=== PATIENT | female | born 1950 | race Caucasian/White ===

== ENCOUNTER 2024-09-26 09:56 | Outpatient (OUT) | payer MEDICARE, OTHER, SELFPAY ==
--- OUTSIDE RECORDS SUMMARY | 2019-09-05 07:20 | XMS_ITS | Continuity of Care Document ---
Author Organization [facility] Address [address] [place] [phone] Phone Care Team Providers Care Traffic Engineering Director Name Role Phone DEMETRIS MSN, FORENSIC SCIENTIST,CAR STARTER-C, JARVIS Unavailable Unavailable Allergies, Adverse Reactions, Alerts [...] - 3 Views Postop F/u Visit [facility] 9 Arthroplasty Acetab & Fem Pros Falls Risk Assessment Documented 2018 Screen Future Fall Risk No Falls 2018 Pre-Op Visit Postop F/u Visit Inc[facility] 9 Hip, Unilateral, W/pelvis When Perf, 2 - 3 Views Postop F/u Visit Inc[facility] 9 Arthroplasty Acetab & Fem Pros Pre-Op Visit Offic/outpt E&m New Mod Sever 8 Hips, Bilat, W/pelvis When Perf, 3 - 4 V iews Advance Directives Directive Yes / No Effective Date File Name No Information Encounters Encounter Description Practice Location Reason(s) For Visit Diagnoses Date Provider Providers Copied on Encounter Offic/outpt E&m Estab Low-mod [facility], [address] [place] [address], [id number], tel:[phone] [facility] Primary osteoarthritis of both hips 0 DEMETRIS CONLEY. [address] [place] [address], [id number], . tel:[phone] Referring Provider: BARTOLOME Yeh, [address] [place] [address], [id number]. tel:[phone] [facility], [address] [place] [address], [id number], tel:[phone] [facility] Status post total hip replacement, left Sep- 9 DEMETRIS CONLEY. [address] [place] [address], [id number], [place]. tel:[phone] Referring Provider: BARTOLOME Yeh, [address] [place] [address], [id number]. tel:[phone] [facility], [address] [place] [address], [id number], tel:[phone] [facility] Status post total hip replacement, left Robert-0 9 DEMETRIS CONLEY. [address] [place] [address], [id number], [place]. tel:[phone] Referring Provider: BARTOLOME Yeh, [address] [place] [address], [id number]. tel:[phone] [facility], [address] [place] [address], [id number], [place] tel:[phone] [facility] In Patient No Information 9 RACHEL MANCUSO. [address] [place] [address], [id number], [place]. tel:[phone] Pre-Op Visit [facility], [address] [place] [address], [id number], [place] tel:[phone] [facility] Body mass index (BMI) 32.0-32.9, adultPrimary osteoarthritis of left hip 9 DEMETRIS CONLEY. [address] [place] [address], [id number], [place]. tel:[phone] Referring Provider: BARTOLOME Yeh, [address] [place] [address], [id number]. tel:[phone] [facility], [place], [address] [place] [address], [facility], [place] tel:[phone] [facility] Status post total hip replacement, right Jun- 9 DEMETRIS CONLEY. [address] [place] [address], [id number], [place]. tel:[phone] [facility] [place], [place], [address] [place] [address], [facility], [place] tel:[phone] [facility] Status post total hip replacement, right Fe- 9 DEMETRIS CONLEY. [address] [place] [address], [id number], [place]. tel:[phone] Referring Provider: BARTOLOME Yeh, [address] [place] [address], [id number]. tel:[phone] [facility] [place], [facility], [address] [place] [address], [address] [place] [address] tel:[phone] [facility] In Patient No Information 9 RACHEL MANCUSO. [address] [place] [address], [address] [place] [address], . tel:[phone] Pre-Op Visit [facility], [facility], [address] [place] [address], [facility], tel:[phone] [facility] Primary osteoarthritis of both hips 9 DEMETRIS CONLEY. [address] [place] [address], [address] [place] [address], . tel:[phone] Referring Provider: BARTOLOME Yeh, [address] [place] [address], [address] [place] [address]. tel:[phone] Offic/outpt E&m [facility] [place], [facility], [address] [place] [address], [facility], tel:[phone] [facility] Primary osteoarthritis of both hips 8 DEMETRIS CONLEY. [address] [place] [address], [address] [place] [address], . tel:[phone] Family History Family Member Type Diagnosis Age At Onset No Information Immunizations Vaccine Date Status Comments Pneumococcal Conjugate, unsp ecified formulation administered Source: Other Provid er Flu (split) (3 yrs or older) administered Source: Other Provider Pneumo (2 yrs or older) (PPV23) administe red Source: Other Provider Payers Payer name Insurance type Covered republican ID Authoriza tion(s) Medicare Part B MB [id number] AARP CI [id number] Social History Type Description Quantity Date Captured [...] manageme nt education, guidance, and counseling completed Appointment Ariadne Mcdowell BOOKED Future Order: Lab Order Hip 3VW Bilateral ([id number]), Sent on: Sent Future Order: Lab Order Hip 2-3v w(Pelv w/lat hip) Left ([id number]), Sent on: Sent Future Order: Lab Order Hip 2-3v w(Pelv w/lat hip) Right ([id number]), Sent on: Sent Future Order: Lab Order Hip 3VW Bilateral ([id number]), Sent on: Sent History Of Present Illness Encounter Date Complaint History Of Prese nt Illness No Information Functional Status Date Functional Assessmen t No Information Instructions Date Instruction Additional Infor mation Giving encouragement to exercise Related to Body mass index (BMI) 32.0-32.9, adult Dietary management e ducation, guidance, and counseling Related to Body mass index (BMI) 32.0-32.9, adult Assessments Type Assessment Date No Information Patient Care Teams Name Effective Dates (start - stop) Status Members No Information
--- OUTSIDE RECORDS SUMMARY | 2024-09-25 06:26 | XMS_ITS | Continuity of Care Document ---
Author Organization [facility] Address [address] [place] [address] Phone Support Name Relationship Address Phone Taco Mcdowell Emergency Contact Unknown Taco Mcdowell Caregiver Unknown Dottie Murillo APRN Personal Relationship [address] [place] [address] Care Teams Patient Care Team Team Status: Active Member Role Status Dates Dottie Murillo APRN FINISHED GOODS INSPECTOR-C Primary Care Provider Active Patient Care Team Team Status: Inactive Member Role Status Dates Dottie Murillo APRN FINISHED GOODS INSPECTOR-C Primary Care Provider, Attending Provider Active Start: September 25, 2024 End: September 25, 2024 Chief Complaint and Reason for Visit Chief Complaint Admit Date 6 month f/u September 25, 2024 9:57a m Reason for Visit Admit Date Eustachian tube dysfunction September 25 9:57am Allergies, Adverse Reactions, Alerts Allergen Type Severity Reaction Last Updated Verified Status sulfacetamide Allergy Unknown rash September 25 9:58am Yes Active sulfur Allergy Unknown rash September 25, 2024 9:58am Yes Active Penicillins Allergy Unknown pt reports she was unable move arms September 25, 2024 9:58am Yes Active Sulfa (Sulfonamide Antibiotics) Allergy Unknown Rash September 25, 2024 9:58am Yes Active Social History Smoking Status Status Start Date End Date Date of Observa tion Ex-smoker (finding) October 10:34am Observation Status Observation Response Date of Response Patient Sex Female September 25, 2024 1 0:25am Assigned Sex Female March Family History Relationship Condition Age at Onset Recorded Date/T avelino father Hypertension Unknown Cerebrovascular accident (CVA) Unknown mother Hypertension Unknown Cerebrovascular accident (CVA) Unknown father Unknown History of stroke Unknown Hypertension Unknown mother Unknown History of stroke Unknown Hypertension Unknown Problems Active Problems Medical Problem Onset Date Status Medicare annual wellness visit, subsequent Active Generalized anxiety disorder Act ailyn Eustachian tube dysfunction Acti ve Bipolar disorder Active Hypertension Active Medications Medication Status Dose Units Route Directions Qty Days St art Date Stop Date End Date Instructions Alprazolam (Xanax) 0.5 mg Tablet Discont inued 0.25 MG PO Daily as needed for Anxiety November 28, 2020 12:00a m October 19, 2023 10:02 am Spironolacto ne 50 mg Tablet Discont inued 50 MG PO Daily November 28, 2020 12:00a m October 19, 2023 10:02 am Metoprolol Succinate 25 mg Capsule,Spri nkle,Er 24hr Discont inued 25 MG PO Daily at bedtime November 28, 2020 12:00a m October 19, 2023 10:02 am Hydroxyzine Pamoate 50 mg Capsule Discont inued 50 MG PO Q3H as needed for Muscle Spasm December 16, 2020 12:00a m October 19, 2023 10:02 am Aspirin 81 mg Tablet,Delay ed Release (Dr/Ec) Discont inued 81 MG PO Twice daily December 16, 2020 12:00a m October 19, 2023 10:02 am Oxycodone 5 mg Tablet Discont inued 10 MG PO Every 4 hours as needed for Pain Scale 6 - 10 December 16, 2020 October 19, 2023 10:02 am Oxycodone 5 mg Tablet Discont inued 5 MG PO Every 4 hours as needed for Pain Scale 1 - 5 December 16, 2020 October 19, 2023 10:02 am Hydroxyzine Pamoate 25 mg Capsule Discont inued 25 MG PO Q3H as needed for Muscle Spasm December 16, 2020 12:00a m October 19, 2023 10:02 am Alprazolam (Xanax) 0.5 mg tablet Discont inued 0.5 MG PO Daily as needed for Anxiety October 19, 2023 10:01a m Augus t 2023 10:51 am Paroxetine Hcl (Paxil) 10 mg tablet Discont inued 10 MG PO Daily 90 90 November 25, 2023 10:46a m Decem 2023 11:00 am Alprazolam (Xanax) 0.5 mg tablet Discont inued 0.5 MG PO Daily as needed for Anxiety November 25, 2023 10:46a m September 25, 2024 10:24 am Amlodipine 2.5 mg tablet Active 2.5 MG PO Daily 90 September 25, 2024 10:21a m Paroxetine Hcl (Paxil) 10 mg tablet Active 10 MG PO Daily 90 September 25, 2024 10:21a m Alprazolam (Xanax) 0.5 mg tablet Active 0.5 MG PO Daily as needed for Anxiety September 25, 2024 10:21a m Fluticasone Propionate (Flonase Allergy Relief) 50 mcg/actuatio n spray,suspen lamine Active 1 SPRAY INTRAN MARY Daily September 25, 2024 12:00a m administer into each nostril Amlodipine 2.5 mg tablet Discont inued 2.5 MG PO Daily October 19, 2023 12:00a m November 01, 2023 10:52 am Paroxetine Hcl (Paxil) 10 mg tablet Discont inued 10 MG PO Daily November 01, 2023 12:00a m Augus t 2023 11:08 am Amlodipine 2.5 mg tablet Discont inued 2.5 MG PO Daily November 01, 2023 10:51a m Dece kar 2023 11:00 am Amlodipine 2.5 mg tablet Active 2.5 MG PO Daily 90 90 Decemb er 2023 11:00a m Paroxetine Hcl (Paxil) 10 mg tablet Active 10 MG PO Daily 90 90 Decemb er 2023 11:00a m Medical Equipment Device Date Implanted Device Details Orthopaedic cement, non-medicated December 16, 2 021 LIBIA: ()[id number](02)[place] [id number] Issuing Agency: 1 Device Id: [id number] Expiration Date: 2023-09-17 Lot Number: [id number] Orthopaedic cement, non-medicated December 16, 2 021 LIBIA: ()[id number](10)AZ [id number] Issuing Agency: [facility] Device Id: [id number] Expiration Date: 2023-09-17 Lot Number: [id number] Uncoated knee femur prosthes is, metallic December 16, 2020 LIBIA: ()[id number](64)[id number] Issuing Agency: [facility] Device Id: [id number] Expiration Date: 2030-06-25 Lot Number: [id number] Uncoated knee tibia prosthes is, metallic December 16, 2020 LIBIA: ()[id number](30)[id number] Issuing Agency: [facility] Device Id: [id number] Expiration Date: 2030-08-11 Lot Number: [id number] Polyethylene patella prosthesis December 16 LIBIA: ()[id number](54)36 [id number] Issuing Agency: [facility] Device Id: [id number] Expiration Date: 2028-09-12 Lot Number: [id number] Knee stem December 16, 2020 LIBIA: ()[id number](22)66 [id number] Issuing Agency: [facility] Device Id: [id number] Expiration Date: 2030-08-31 Lot Number: [id number] Tibial insert December 16, 2020 LIBIA: ()[id number](40)52 [id number] Issuing Agency: [facility] Device Id: [id number] Expiration Date: 2025-06-16 Lot Number: [id number] Vital Signs Vital Reading Result Reference Range Collection Date/Time Height 65.5 [in_i] September 25, 2024 10:00am Weight 99.33 kg September 25, 2024 10:00am Body Temperature 96.2 [degF] 97.6-99.0 September 25 10:00am Heart Rate 64 /min 60-100 September 25, 2024 10:00am Oxygen saturation by Pulse oximetry 97 % 95-100 September 25, 2024 10:00 am BP Systolic 138 mm[Hg] 100-140 September 25, 2024 10:00am BP Diastolic 84 mm[Hg] 60-100 September 25, 2024 10:00am BMI (Body Mass Index) 35.9 kg/m2 September 252024 10:00am Advance Directives Advance Directive Response Recorded Date/ Time Advance Directives No November 08 7:22am Insurance Providers Guarantor Ariadne Mcdowell Address [address] [address] Contact Info. Home Phone: Payer Policy Id Coverage Id Subscriber's Name Subscriber Id Effective Date Expiration Date Medicare [id number] Ariadne Mcdowell [id number] [facility] Health Claims [id number] Ariadne Mcdowell [id number] [facility] [id number] Ariadne Mcdowell [id number] Encounters Encounter Location(s) Arrival/Admit Date Discharge/Depart Date Provider(s) Departed Physician/Prov ider Office Visit [facility] Physician [facility] September 25, 2024 9:57am September 25, 2024 10:25am Dottie Murillo APRN CNP Recent Diagnosis Onset Date Admit Date Eustachian tube dysfunction September 25, 2024 9:57am Assessments Diagnosis Onset Date Resolution Status Admit Date Eustachian tube dysfunction acute September 25, 2024 9:57am
[2024-09-26 10:55] LABS: Basophils Absolute Auto 0.1 10^3/uL (0.0-0.1); Eosinophils Absolute Auto 0.2 10^3/uL (0.0-0.7); Eosinophils Percent Auto 2.9 % (0.9-7.0); Hematocrit 44.2 % (36.0-48.0); Hemoglobin 14.3 g/dL (12.0-16.0); Immature Granulocytes Abs Auto 0.02 10^3/uL (0.00-0.03); Immature Granulocytes Pct Auto 0.3 % (0.0-0.5); Lymphocytes Absolute Auto 2.1 10^3/uL (1.2-3.8); Lymphocytes Percent Auto 30.8 % (20.5-60.0); Mean Corpuscular HGB Conc 32.4 g/dL (29.9-35.2); Mean Corpuscular Hemoglobin 29.7 pg (26.7-34.0); Mean Corpuscular Volume 91.7 fL (81.0-99.0); Mean Platelet Volume 10.2 fL (9.5-13.5); Monocytes Absolute Auto 0.6 10^3/uL (0.3-0.8); Monocytes Percent Auto 8.8 % (1.7-12.0); Neutrophils Absolute Auto 3.9 10^3/uL (1.4-6.5); Neutrophils Percent Auto 56.2 % (43.0-75.0); Platelet Count 390 10^3/uL (150-450); Red Blood Count 4.82 10^6/uL (4.20-5.40); Red Cell Distribution Width 12.7 % (11.0-15.0); White Blood Count 6.9 10^3/uL (4.0-11.0)
[2024-09-26 11:04] LABS: Alanine Aminotransferase 17 U/L (14-59); Albumin Globulin Ratio 1.1; Albumin Level 3.4 g/dL (3.4-5.0); Alkaline Phosphatase 102 U/L (46-116); Anion Gap 9.9; Aspartate Amino Transferase 10 U/L (15-37); BUN Creatinine Ratio 24.1; Bilirubin Total 0.4 mg/dL (0.2-1.0); Calcium 8.9 mg/dL (8.5-10.1); Carbon Dioxide 31.3 mmol/L (21.0-32.0); Chloride 103 mmol/L (98-107); Chol HDL Ratio 4.4; Cholesterol 215 mg/dL (<=200); Estimated GFR (African America >60 (>=60 mL/min/1.73m^2); Estimated GFR (Non-African Ame >60 (>=60 mL/min/1.73m^2); Globulin 3.1 g/dL; Glucose 98 mg/dL (74-106); HDL Cholesterol 49 mg/dL (40-60); Potassium 4.2 mmol/L (3.5-5.1); Sodium 140 mmol/L (136-145); Total Protein 6.5 g/dL (6.4-8.2); Triglycerides 131 mg/dL (<=150); VLDL CHOLESTEROL 26.2 mg/dL
== END 2024-09-26 09:57 | disposition home or self-care (01) ==
LOC: LAB 10:03
PROVIDERS: PCP Nurse Practitioner Family; Visit Provider Nurse Practitioner Family
DX: I10 Essential (primary) hypertension (principal)
CPT/HCPCS: 36415; 80053; 80061

== ENCOUNTER 2024-12-26 12:02 | Outpatient (OUT) | payer MEDICARE, OTHER, SELFPAY ==
--- OUTSIDE RECORDS SUMMARY | 2019-09-05 07:20 | XMS_ITS | Continuity of Care Document ---
Author Organization [facility] Address [address] [place] [phone] Phone Care Team Providers Care Logistics And Planning Manager Name Role Phone DEMETRIS MSN, LOCK AND DAM OPERATOR,SILO WORKER-C, JARVIS Unavailable Unavailable Allergies, Adverse Reactions, Alerts Substance Reaction Status Criticality Sulfa (Sulfonamide Antibiotics) rash Active No Information Penicillins arms didn't work Active No Informat ion Medications Medication Instructions Dosage Effective Dates (start - stop) Status Comments Latuda 20 mg tablet take 1 tablet by oral route every day with food (at least 350 calories) 20 MG - Active Xanax 0.5 mg tablet take 1 tablet by oral route 3 times every day as needed 0.5 MG - Active amoxicillin 500 mg tablet take 4 tablet by oral route 1 hour prior to procedure 2 G - Active Aspir-81 81 mg tablet,delayed release take 1 tablet by oral route every day - Active metoprolol succinate ER 25 mg tablet,extended release 24 hr take 1 tablet by oral route every day 25 MG - Active lamotrigine 200 mg tablet take 1 tablet by oral route 2 times every day 200 MG - Active meloxicam 7.5 mg tablet take 1 capsule by oral route daily starting 2 days before surgery, continue for 6 weeks after surgery - No Longer Active Surgery date:09/05/18 Wellbutrin SR 100 mg tablet, 12 hr sustained-release take 1 tablet by oral route 2 times every day 100 MG - No Longer Active Procedures Procedure Date Offic/outpt E&m Estab Low-mod 0 Hips, Bilat, W/pelvis When Perf, 3 - 4 V iews Postop F/u Visit [facility] 9 Hip, Unilateral, W/pelvis When Perf, 2 - 3 Views Postop F/u Visit [facility] 9 Arthroplasty Acetab & Fem Pros Falls Risk Assessment Documented 2018 Screen Future Fall Risk No Falls 2018 Pre-Op Visit Postop F/u Visit [facility] 9 Hip, Unilateral, W/pelvis When Perf, 2 - 3 Views Postop F/u Visit [facility] 9 Arthroplasty Acetab & Fem Pros Pre-Op Visit Offic/outpt E&m New Mod Sever 8 Hips, Bilat, W/pelvis When Perf, 3 - 4 V iews Advance Directives Directive Yes / No Effective Date File Name No Information Encounters Encounter Description Practice Location Reason(s) For Visit Diagnoses Date Provider Providers Copied on Encounter Offic/outpt E&m Estab Low-mod [facility], [address] [place] [address], [id number], tel:[phone] [facility] Primary osteoarthritis of both hips 0 DEMETRIS CONLEY. [address] [place] [address], [id number], . tel:[phone] Referring Provider: BARTOLOME Yeh, [address] [place] [address], [id number]. tel:[phone] [facility], [address] [place] [address], [id number], tel:[phone] [facility] Status post total hip replacement, left Sep- 9 DEMETRIS CONLEY. [address] [place] [address], [id number], [place]. tel:[phone] Referring Provider: BARTOLOME Yeh, [address] [place] [address], [id number]. tel:[phone] [facility], [address] [place] [address], [id number], tel:[phone] [facility] Status post total hip replacement, left Robert-0 9 DEMETRIS CONLEY. [address] [place] [address], [id number], [place]. tel:[phone] Referring Provider: BARTOLOME Yeh, [address] [place] [address], [id number]. tel:[phone] [facility], [address] [place] [address], [id number], [place] tel:[phone] [facility] In Patient No Information 9 RACHEL MANCUSO. [address] [place] [address], [id number], [place]. tel:[phone] Pre-Op Visit [facility], [address] [place] [address], [id number], [place] tel:[phone] [facility] Body mass index (BMI) 32.0-32.9, adultPrimary osteoarthritis of left hip 9 DEMETRIS CONLEY. [address] [place] [address], [id number], [place]. tel:[phone] Referring Provider: BARTOLOME Yeh, [address] [place] [address], [id number]. tel:[phone] [facility], [facility], [address] [place] [address], [facility], [place] tel:[phone] [facility] Status post total hip replacement, right Jun- 9 DEMETRIS CONLEY. [address] [place] [address], [id number], [place]. tel:[phone] [facility], [facility], [address] [place] [address], [facility], [place] tel:[phone] [facility] Status post total hip replacement, right Fe- 9 DEMETRIS CONLEY. [address] [place] [address], [id number], [place]. tel:[phone] Referring Provider: BARTOLOME Yeh, [address] [place] [address], [id number]. tel:[phone] [facility] [place], [facility], [address] [place] [address], [address] [place] [address] tel:[phone] [facility] In Patient No Information 9 RACHEL MANCUSO. [address] [place] [address], [address] [place] [address], . tel:[phone] Pre-Op Visit [facility], [facility], [address] [place] [address], [facility], tel:[phone] [facility] Primary osteoarthritis of both hips 9 DEMETRIS CONLEY. [address] [place] [address], [address] [place] [address], . tel:[phone] Referring Provider: BARTOLOME Yeh, [address] [place] [address], [address] [place] [address]. tel:[phone] Offic/outpt E&m [facility] [place], [facility], [address] [place] [address], [facility], tel:[phone] [facility] Primary osteoarthritis of both hips 8 DEMETRIS CONLEY. [address] [place] [address], [address] [place] [address], . tel:[phone] Family History Family Member Type Diagnosis Age At Onset No Information Immunizations Vaccine Date Status Comments Pneumococcal Conjugate, unsp ecified formulation administered Source: Other Provid er Flu (split) (3 yrs or older) administered Source: Other Provider Pneumo (2 yrs or older) (PPV23) administe red Source: Other Provider Payers Payer name Insurance type Covered constitution party ID Authoriza tion(s) Medicare Part B MB [id number] AARP CI [id number] Social History Type Description Quantity Date Captured Comments Alcohol Use Details Unknown Caffeine Use Details Unknown Tobacco Use Status Ex-cigarette smoker 020 Smoking Status Former smoker Smoking Tobacco Use Details Cigarette: Age Started: 16, Age Stopped: 31, Years Used 15 Cigarette: 1 Packs per day, Pack Year: 15 Sex Female Vital Signs Date / Time: Height Weight BMI Pulse Rate Blood Pressure Temperature Respiratory Rate Body Surface Area Head Circumference Head Circ. Percentile Wt./Vinny. Percentile BMI percentile Pulse Ox Inhaled Ox 11:37 AM 65.00 in 89.358 kg (197.00 lbs) 32.7 8 kg/m eter (2) 2.02 meter(2) Chief Complaint And Reason For Visit No Information Reason For Referral Reason For Referral No Information Plan Of Treatment Date Type Action Status Goal Dietary manageme nt education, guidance, and counseling completed Future Order: Lab Order Hip 3VW Bilateral ([id number]), Sent on: Sent Future Order: Lab Order Hip 2-3v w(Pelv w/lat hip) Left ([id number]), Sent on: Sent Future Order: Lab Order Hip 2-3v w(Pelv w/lat hip) Right ([id number]), Sent on: Sent Future Order: Lab Order Hip 3VW Bilateral ([id number]), Sent on: Sent History Of Present Illness Encounter Date Complaint History Of Prese nt Illness No Information Functional Status Date Functional Assessmen t No Information Instructions Date Instruction Additional Infor michelle Giving encouragement to exercise Related to Body mass index (BMI) 32.0-32.9, adult Dietary management e ducation, guidance, and counseling Related to Body mass index (BMI) 32.0-32.9, adult Assessments Type Assessment Date No Information Patient Care Teams Name Effective Dates (start - stop) Status Members No Information
--- OUTSIDE RECORDS SUMMARY | 2024-12-26 07:53 | XMS_ITS | Continuity of Care Document ---
Author Organization [facility] Address [address] [place] [address] Phone Care Team Providers Care Marshmallow Machine Operator Name Role Phone Dottie Murillo APRN Primary Care Provider Dottie Murillo APRN Attending Provider Care Teams Patient Care Team Team Status: Active Member Role Status Dates Dottie Murillo APRN SUPERINTENDENT LAUNDRY-C Primary Care Provider Active Patient Care Team Team Status: Inactive Member Role Status Dates Dottie Murillo APRN SUPERINTENDENT LAUNDRY-C Primary Care Provider Active Start: December 262024 End: December 26, 2024 Dottie Murillo APRN SUPERINTENDENT LAUNDRY-C Attending Provider Active Start: December End: December 26, 2024 Chief Complaint and Reason for Visit Chief Complaint Admit Date L Rib Pain/Mole on chest December 26, 2024 11:28am Reason for Visit Admit Date History of recent fall December 26 11:28am Rib pain on left side December 26 11:28am Skin lesion of chest wall December 26, 2024 11:28am Lesion of chest December 26, 2024 11:28am Reason for Referral Referring Provider Name Referring Provider Address Referring Provider Phone Referral Date Requested Appointment Date Referral Reason Dottie Murillo [address] [facility] [address] Work Phone: December 26, 2024 L98.9 - Disorder of the skin and subcutaneous tissue, unspecified December 26, 2024 L98.9 - Disorder of the skin and subcutaneous tissue, unspecified Allergies, Adverse Reactions, Alerts Allergen Type Severity Reaction Last Updated Verified Status sulfacetamide Allergy Unknown rash December 262024 9:42am Yes Active sulfur Allergy Unknown rash December 26, 2024 9:42am Yes Active Penicillins Allergy Unknown pt reports she was unable move arms December 26, 2024 9:42am Yes Active Sulfa (Sulfonamide Antibiotics) Allergy Unknown Rash December 26, 2024 9:42am Yes Active Social History Smoking Status Status Start Date End Date Date of Observa tion Ex-smoker (finding) October 10:34am Observation Status Observation Response Date of Response Legal Sex Female (finding) Sex Assigned At Female [birth year] 191948 Family History Relationship Condition Age at Onset Recorded Date/T avelino father Hypertension Unknown Cerebrovascular accident (CVA) Unknown mother Hypertension Unknown Cerebrovascular accident (CVA) Unknown father Unknown History of stroke Unknown Hypertension Unknown mother Unknown History of stroke Unknown Hypertension Unknown Problems Active Problems Medical Problem Onset Date Status Medicare annual wellness visit, subsequent Unkno wn Active Generalized anxiety disorder Unknown Act ailyn Rib pain on left side Unknown Active Eustachian tube dysfunction Unknown Acti ve Bipolar disorder Unknown Active History of recent fall Unknown Active Hypertension Unknown Active Skin lesion of chest wall Unknown Active Medications Medication Status Dose Units Route Directions Qty Days St art Date Stop Date End Date Instructions Adherence Alprazolam (Xanax) 0.5 mg Tablet Discont inued 0.25 MG PO Daily as needed for Anxiety November 28, 2020 12:00a m October 19, 2023 10:02 am Spironolact one 50 mg Tablet Discont inued 50 MG PO Daily November 28, 2020 12:00a m October 19, 2023 10:02 am Metoprolol Succinate 25 mg Capsule,Spr jonhle,Er 24hr Discont inued 25 MG PO Daily at bedtime November 28, 2020 12:00a m October 19, 2023 10:02 am Hydroxyzine Pamoate 50 mg Capsule Discont inued 50 MG PO Q3H as needed for Muscle Spasm December 16, 2020 12:00a m October 19, 2023 10:02 am Aspirin 81 mg Tablet,Janet yed Release (Dr/Ec) Discont inued 81 MG PO [...] Discont inued 10 MG PO Daily 90 November 25, 2023 10:46a m [facility] 2023 11:00 am Alprazolam (Xanax) 0.5 mg tablet Discont inued 0.5 MG PO Daily as needed for Anxiety November 25, 2023 10:46a m September 25, 2024 10:24 am Amlodipine 2.5 mg tablet Active 2.5 MG PO Daily September 25, 2024 10:21a m Complies with drug therapy Paroxetine Hcl (Paxil) 10 mg tablet Active 10 MG PO Daily September 25, 2024 10:21a m Complies with drug therapy Alprazolam (Xanax) 0.5 mg tablet Active 0.5 MG PO Daily as needed for Anxiety September 25, 2024 10:21a m Complies with drug therapy Fluticasone Propionate (Flonase Allergy Relief) 50 mcg/actuati on spray,suspe nsion Active 1 SPRAY INTRAN MARY Daily September 25, 2024 12:00a m administer into each nostril Complies with drug therapy Amlodipine 2.5 mg tablet Discont inued 2.5 MG PO Daily October 19, 2023 12:00a m November 01, 2023 10:52 am Paroxetine Hcl (Paxil) 10 mg tablet Discont inued 10 MG PO Daily November 01, 2023 12:00a m Augus t 2023 11:08 am Amlodipine 2.5 mg tablet Discont inued 2.5 MG PO Daily 90 90 November 01, 2023 10:51a m Dece kar 2023 11:00 am Amlodipine 2.5 mg tablet Discont inued 2.5 MG PO Daily 90 Decemb er 2023 11:00a m September 25, 2024 10:26 am Paroxetine Hcl (Paxil) 10 mg tablet Discont inued 10 MG PO Daily Decemb er 2023 11:00a m September 25, 2024 10:26 am Medical Equipment Device Date Implanted Device Details Orthopaedic cement, non-medicated December 16, LIBIA: ()[id number])AZ [id number] Issuing Agency: [facility] Device Id: [id number] Expiration Date: 2023-09-17 Lot Number: [id number] Orthopaedic cement, non-medicated December 16 LIBIA: ()[id number](10)AZ [id number] Issuing Agency: [facility] Device Id: [id number] Expiration Date: 2023-09-17 Lot Number: [id number] Uncoated knee femur prosthes is, metallic December 16, 2020 LIBIA: ()[id number](01)64 [id number] Issuing Agency: [facility] Device Id: [id number] Expiration Date: 2030-06-25 Lot Number: [id number] Uncoated knee tibia prosthes is, metallic December 16, 2020 LIBIA: ()[id number](41)31 [id number] Issuing Agency: [facility] Device Id: [id number] Expiration Date: 2030-08-11 Lot Number: [id number] Polyethylene patella prosthesis December 16 LIBIA: ()[id number](04)52 [id number] Issuing Agency: [facility] Device Id: [id number] Expiration Date: 2028-09-12 Lot Number: [id number] Knee stem December 16, 2020 LIBIA: ()[id number]([id number](46)45 [id number] Issuing Agency: [facility] Device Id: [id number] Expiration Date: 2030-08-31 Lot Number: [id number] Tibial insert December 16, 2020 LIBIA: )[id number](79)17 [id number] Issuing Agency: [facility] Device Id: [id number] Expiration Date: 2025-06-16 Lot Number: [id number] Vital Signs Vital Reading Result Reference Range Collection Date/Time Height 65.5 [in_i] December 26, 2024 11:30am Weight 100.24 kg December 26, 2024 11:30am Body Temperature 96.1 [degF] 97.6-99.0 December 262024 11:30am Heart Rate 71 /min 60-100 December 26, 2024 11:30am Oxygen saturation by Pulse oximetry 99 % 95-100 December 26, 2024 11:30am BP Systolic 122 mm[Hg] 100-140 December 26, 2024 11:30am BP Diastolic 84 mm[Hg] 60-100 December 26, 2024 11:30am BMI (Body Mass Index) 36.2 kg/m2 2024 11:30am Advance Directives Advance Directive Response Recorded Date/ Time Advance Directives No November 08 7:22am Insurance Providers Guarantor Ariadne Mcdowell Address [address] [place] [phone] Contact Info. Home Phone: Payer Policy Id Subscriber's Name Subscriber Id Effectiv e Date Expiration Date Medicare [id number] Ariadne Mcdowell [id number] [facility] Health Claims [id number] Ariadne Mcdowell [id number] [facility] [id number] Ariadne Mcdowell [id number] Encounters Encounter Location(s) Arrival/Admit Date Discharge/Depart Date Provider(s) Departed Physician/Prov ider Office Visit -[facility] December 26, 2024 11:28am December 26, 2024 11:52am Dottie Murillo APRN CNP Recent Diagnosis Onset Date Admit Date History of recent fall Unknown December 26, 2024 11:28am Rib pain on left side Unknown December 26, 2024 11:28am Skin lesion of chest wall Unknown Septem kar 2024 11:28am Lesion of chest Unknown December 26, 2 025 11:28am Assessments Diagnosis Onset Date Resolution Status Admit Date History of recent fall acute Se ptember 2024 11:28am Rib pain on left side acute Sep tember 2024 11:28am Skin lesion of chest wall acute December 26, 2024 11:28am Lesion of chest deleted December 26, 2024 11:28am Plan of Treatment Future Tests Future scheduled test information is unavailable Pending Tests Test Name Ordered Date Scheduled Date XR ribs LT min 3V w CXR1V* December 26, 2024 1 1:43am Future Visits Future appointment information is unavailable Referrals to Other Providers Reason for Referral Referral Start Date Provider Provider Contact Information Provider Address L98.9 - Disorder of the skin and subcutaneous tissue, unspecified December 26, 2024 [facility] Work Phone: [address] [facility] [address] Future Procedures Future procedure information is unavailable Future Medications Future medication information is unavailable Patient Instructions Patient instructions are unavailable Hospital Discharge Instructions Ambulatory Orders* Referral to Dermatology Time Frame: 12/26/24, Location: None Selected
--- NOTE | 2024-12-26 12:07 | XR_ITS ---
The [address] [address] Patient Name: BLAZE DIALLO MRN: [id number] date: 1950 Sex: F Assigned Patient Location: [facility] Current Patient Location: [facility] Accession/Order Number: [id number] Exam Date: 12/26/2024 12:15 Report Date: 12/26/2024 13:01 At the request of: TIA GRANT Procedure: XR ribs LT min 3V w CXR1V PA CHEST WITH ? RIBS: CLINICAL HISTORY: Left anterior lower rib pain under the breasts since fall 2 weeks ago. Pain increases with cough and deep inspiration. COMPARISON: 08/31/2022 The chest film shows continued elevation left hemidiaphragm with underlying air-filled viscus. There is minor atelectasis or scarring. No no consolidation, effusion or pneumothorax. The cardiac, hilar and mediastinal silhouettes are stable. No vascular congestion is seen. Degenerative changes seen at the right shoulder AP and both oblique views of the left ribs were obtained. The anterior oblique view shows 3 consecutive mildly displaced rib fractures involving what is thought to be the fourth through sixth ribs. XR/XR ribs LT min 3V w CXR1V IMPRESSION: ACUTE LEFT RIB FRACTURES. NO ACUTE CARDIOPULMONARY FINDINGS. Impression dictated by: Gila Durbin M.D. 12/26/2024 1:01 PM Dictation Location: [place] [address] Electronically authenticated by: [id number] Y Date: 12/26/2024 13:01
== END 2024-12-26 12:03 | disposition home or self-care (01) ==
LOC: RAD 12:03
PROVIDERS: PCP Nurse Practitioner Family; Visit Provider Nurse Practitioner Family
DX: R07.81 Pleurodynia (principal); Z91.81 History of falling; S22.42XA Multiple fractures of ribs, left side, initial encounter for closed fracture
CPT/HCPCS: 71101

== ENCOUNTER 2024-12-28 11:34 | Emergency (ER) | payer MEDICARE, OTHER, SELFPAY ==
--- OUTSIDE RECORDS SUMMARY | 2019-09-05 07:20 | XMS_ITS | Continuity of Care Document ---
Author Organization [facility] Address [address] [place] [phone] Phone Care Team Providers Care Drill Hand Name Role Phone DEMETRIS MSN, CLINICAL DOCUMENTATION SPEC,INDEPENDENT MARKETING CONSULTANT-C, JARVIS Unavailable Unavailable Allergies, Adverse Reactions, Alerts [...] - 3 Views Postop F/u Visit [facility] 9 Arthroplasty Acetab & Fem Pros Falls Risk Assessment Documented 2018 Screen Future Fall Risk No Falls 2018 Pre-Op Visit Postop F/u Visit [facility] 9 Hip, Unilateral, W/pelvis When Perf, 2 - 3 Views Postop F/u Visit [facility] 9 Arthroplasty Acetab & Fem Pros Pre-Op Visit Offic/outpt E&m New Mod Sever 8 Hips, Bilat, W/pelvis When Perf, 3 - 4 V iews Advance Directives Directive Yes / No Effective Date File Name No Information Encounters Encounter Description Practice Location Reason(s) For Visit Diagnoses Date Provider Providers Copied on Encounter Offic/outpt E&m Estab Low-mod [facility], [address] [place] [address], [id number], tel:[phone] [facility] Primary osteoarthritis of both hips 0 DEMETRIS CONLEY. [address] [place] [address], [id number], . tel:[phone] Referring Provider: BARTOLOME Yeh, [address] [place] [address], [id number]. tel:[phone] [facility], [address] [place] [address], [id number], tel:[phone] [facility] Status post total hip replacement, left Sep- 9 DEMETRIS CONLEY. [address] [place] [address], [id number], [place]. tel:[phone] Referring Provider: BARTOLOME Yeh, [address] [place] [address], [id number]. tel:[phone] [facility], [address] [place] [address], [id number], tel:[phone] [facility] Status post total hip replacement, left Robert-0 9 DEMETRIS CONLEY. [address] [place] [address], [id number], [place]. tel:[phone] Referring Provider: BARTOLOME Yeh, [address] [place] [address], [id number]. tel:[phone] [facility], [address] [place] [address], [id number], [place] tel:[phone] [facility] In Patient No Information 9 RACHEL MANCUSO. [address] [place] [address], [id number], [place]. tel:[phone] Pre-Op Visit [facility], [address] [place] [address], [id number], [place] tel:[phone] [facility] Body mass index (BMI) 32.0-32.9, adultPrimary osteoarthritis of left hip 9 DEMETRIS CONLEY. [address] [place] [address], [id number], [place]. tel:[phone] Referring Provider: BARTOLOME Yeh, [address] [place] [address], [id number]. tel:[phone] [facility], [facility], [address] [place] [address], [facility], [place] tel:[phone] [facility] Status post total hip replacement, right Jun- 9 DEMETRIS CONLEY. [address] [place] [address], [id number], [place]. tel:[phone] [facility], [facility], [address] [place] [address], [facility], [place] tel:[phone] [facility] Status post total hip replacement, right Fe- 9 DEMETRIS CONLEY. [address] [place] [address], [id number], [place]. tel:[phone] Referring Provider: BARTOLOME Yeh, [address] [place] [address], [id number]. tel:[phone] [facility] [place], [facility], [address] [place] [address], [address] [place] [address] tel:[phone] [facility] In Patient No Information 9 RACHEL MANCUSO. [address] [place] [address], [address] [place] [address], . tel:[phone] [facility]-Op Visit [facility] [place], [facility], [address] [place] [address], [facility], tel:[phone] [facility] Primary osteoarthritis of both hips 9 DEMETRIS CONLEY. [address] [place] [address], [address] [place] [address], . tel:[phone] Referring Provider: BARTOLOME Yeh, [address] [place] [address], [address] [place] [address]. tel:[phone] Offic/outpt E&m [facility] [place], [facility], [address] [place] [address], [facility], tel:[phone] [facility] Primary osteoarthritis of both hips 8 DEMETRIS CONLEY. [address] [place] [address], [address] [place] [address], . tel:[phone] Family History Family Member Type Diagnosis Age At Onset No Information Immunizations Vaccine Date Status Comments Pneumococcal Conjugate, unsp ecified formulation administered Source: Other Provid er Flu (split) (3 yrs or older) administered Source: Other Provider Pneumo (2 yrs or older) (PPV23) administe red Source: Other Provider Payers Payer name Insurance type Covered green party ID Authoriza tion(s) Medicare Part B MB [id number] AARP CI [id number] Social History Type Description Quantity Date Captured [...] Future Order: Lab Order Hip 3VW Bilateral ([id number]), Sent on: Sent Future Order: Lab Order Hip 2-3v w(Pelv w/lat hip) Left ([id number]), Sent on: Sent Future Order: Lab Order Hip 2-3v w(Pelv w/lat hip) Right ([id number]), Sent on: Sent Future Order: Lab Order Hip 3VW Bilateral ([id number]), Sent on: Sent History Of Present Illness [...]
[2024-12-28 11:38] VITALS: BP 151/98; PULSE 65; TEMP 36.7; O2SAT 97; BMI 35.5
--- NOTE | 2024-12-28 11:53 | PC.NURSE ---
pt ambulated to ER room 1 with no problems. pt answers questions appropriately and with no hesitation.
--- NOTE | 2024-12-28 11:56 | XR_ITS ---
[address] [address] Patient Name: BLAZE DIALLO MRN: [id number] date: 1950 Sex: F Assigned Patient Location: ER Current Patient Location: ER Accession/Order Number: [id number] Exam Date: 12/28/2024 12:20 Report Date: 12/28/2024 12:37 At the request of: GUME LEAL MD Procedure: XR chest 1V PA CHEST: CLINICAL HISTORY: fall COMPARISON: 08/31/2022 Mildly enlarged cardiomediastinal. Lungs are clear. No effusion or pneumothorax. IMPRESSION: Cardiomegaly. Negative acute pleural-parenchymal disease Impression dictated by: Gopal Ryan M.D. 12/28/2024 12:37 PM Dictation Location: [place] [address] Electronically authenticated by: [id number] Y Date: 12/28/2024 12:37
--- NOTE | 2024-12-28 11:56 | ECG_ITS ---
The [facility] Test Date: 2024-12-28 Pat Name: BLAZE DIALLO Department: Room: - Gender: Female Polisher Sand: : 1950 Requested By: [id number] Order Number: [id number] Reading MD: DARCIE CRISTINA Measurements Intervals Many Rate: 59 P: 35 RI: 156 QRS: 6 QRSD: 94 T: 40 QT: 390 QTc: 389 Interpretive Statements 1100 Sinus rhythm 4068 Nonspecific Twave abnormality 9130 borderline ECG Compared to ECG 12/28/2024 11:56:25 Ventricular premature complex(es) no longer present Short RI interval no longer present Electronically Signed On 12-28-2024 14:08:06 EDT by DARCIE CRISTINA
--- NOTE | 2024-12-28 11:56 | CT_ITS ---
The [address] [address] Patient Name: BLAZE DIALLO MRN: [id number] date: 1950 Sex: F Assigned Patient Location: ER Current Patient Location: ER Accession/Order Number: [id number] Exam Date: 12/28/2024 12:20 Report Date: 12/28/2024 12:40 At the request of: GUME LEAL MD Procedure: CT head/brain wo con CT BRAIN WITHOUT CONTRAST: CLINICAL HISTORY: dizziness and fall COMPARISON: None TECHNIQUE: Contiguous axial unenhanced images were obtained through the brain. This CT exam was performed using one or more following dose reduction techniques: Automated exposure control, adjustment of the mA and/or kV according to patient size, or use of iterative reconstruction technique. FINDINGS: There is no evidence of midline shift, intra or extra-axial fluid collection, hemorrhage or CT evidence of acute large vascular distribution stroke. Mild chronic small ischemic disease. Remote lacunar strokes left caudate head, anterior limb internal capsule. Visualized intraorbital contents appear unremarkable. Visualized paranasal sinuses are clear. The surrounding soft tissues are normal. CT/CT head/brain wo con IMPRESSION: NO ACUTE INTRACRANIAL ABNORMALITY. Impression dictated by: Gopal Ryan M.D. 12/28/2024 12:40 PM Dictation Location: [place] [address] Electronically authenticated by: [id number] Y Date: 12/28/2024 12:40
--- NOTE | 2024-12-28 12:16 | ED_ITS ---
HPI HPI - General Adult General Chief complaint: Weakness Stated complaint: DIZZINESS, WEAKNESS Time Seen by Provider: 12/28/24 11:47 History of Present Illness HPI narrative: The patient 74-year-old female is coming to the ER after she was evaluated recently for fall and rib fracture on the left side by her primary care, the patient apparently last night fell asleep on the toilet seat because she came back home late, when she woke up she had her right leg sleep and when she stood up she fell down hitting her head as well as the right side of the chest wall The patient denies any chest wall pain but she mentioned that she has been feeling dizzy, when specifying dizziness the patient mentioned that the room spinning which seems to be more in the left side than the right. There is no weakness no numbness no tingling no other concerns The patient had no difficulty breathing or speaking at any time and she also denies any fever or chills or any concerns at the moment Although she had dizziness she did walk into the ER with no difficulty Related Data Allergies Allergy/AdvReac Type Severity Reaction Status Date / Time Penicillins Allergy Severe unable to Verified 12/28/24 11:46 move arms Sulfa (Sulfonamide Allergy Severe Hives Verified 12/28/24 11:46 Antibiotics) Opioid HPI Opioid Management Most Recent Opioid Data: Last Pain Scale 5 Today, 12:33 Last ED Pain Assessment Today, 12:33 Review of Systems ROS Status of ROS 10 or more systems reviewed and unremark able except as noted in history and below PFSH PFSH Social History Little interest or pleasure in doing things: not at all Feeling down, depressed, or hopeless: not at all Exam Narrative Exam Narrative: Nurses notes and vital signs reviewed and patient is not hypoxic. General: Well-appearing and in no apparent distress. Skin: Warm, dry, no pallor noted. No rash. Head: Normocephalic, atraumatic. Neck: Supple, non-tender. Eye: The patient have horizontal nystagmus Ears, Nose, Mouth, and Throat: TM are clear, no nasal mucosal hypertrophy. Oral mucosa is moist, no posterior oropharynx erythema, uvula is mid-line Cardiovascular: Regular Rate and Rhythm without murmur, gallop or rub. Respiratory: No accessory muscle use or respiratory distress. Lungs are clear to auscultation, no wheezing, rales or rhonchi Chest Wall: no tenderness Back: No midline thoracic or lumbar vertebral tenderness. No CVA tenderness Musculoskeletal: normal ROM, no calf or popliteal tenderness, no lower extremity edema/swelling GI: Abdomen is soft, non-distended. Normal bowel sounds. No masses appreciated. No tenderness to palpation. No rebound, guarding, or rigidity noted. Neurological: A&O x4. No cranial nerve dysfunction observed. No truncal ataxia. Moves all extremities. Sensation intact. Psychiatric: Cooperative and interactive. Normal mood and affect. Constitutional Vital Signs, click to edit/add: Last Vital Signs Temp 98.1 F 12/28/24 11:38 Pulse 66 12/28/24 13:32 Resp 16 12/28/24 13:32 BP 158/86 H 12/28/24 13:32 Pulse Ox 98 12/28/24 13:32 O2 Del Method Room Air 12/28/24 13:32 Course Vital Signs Vital signs: Vital Signs Temperature 98.1 F 12/28/24 11:38 Pulse Rate 65 12/28/24 11:38 Respiratory Rate 18 12/28/24 11:38 Blood Pressure 151/98 H 12/28/24 11:38 Pulse Oximetry 97 12/28/24 11:38 Oxygen Delivery Method Room Air 12/28/24 11:38 Temperature 98.1 F 12/28/24 11:38 Pulse Rate 66 12/28/24 13:32 Respiratory Rate 16 12/28/24 13:32 Blood Pressure 158/86 H 12/28/24 13:32 Pulse Oximetry 98 12/28/24 13:32 Oxygen Delivery Method Room Air 12/28/24 13:32 Medical Decision Making [facility] Narrative Medical decision making narrative: EKG showing sinus rhythm with a heart rate of [address] elevation or depression CT head showed no acute finding CBC and chemistry were within normal except for mildly elevated BUN Chest x-ray showed no acute pathology as well The patient right now her evaluation could be secondary to vertigo . We did apply the Dora maneuver in the ER after which the patient was feeling much better Patient discharged home with instruction to hydrate and rest--her presentation vertigo resolved within the next 2 days and she can continue using exercises at home The patient is to follow up with primary care physician in next 2-3 days or to return to the emergency department should any of the signs or symptoms worsen or new symptoms develop. The patient agrees with the following Diagnosis and Treatment plan and the patient will be discharged home. Lab Data Labs: Lab Results 12/28/24 Range/Units 12:10 WBC 9.5 (4.0-11.0) 10^3/uL RBC 4.78 (4.20-5.40) 10^6/uL Hgb 14.6 (12.0-16.0) g/dL Hct 43.8 (36.0-48.0) % MCV 91.6 (81.0-99.0) fL MCH 30.5 (26.7-34.0) pg MCHC 33.3 (29.9-35.2) g/dL RDW 12.1 (11.0-15.0) % Plt Count 382 (150-450) 10^3/uL MPV 10.4 (9.5-13.5) fL Neut % (Auto) 63.3 (43.0-75.0) % Lymph % (Auto) 24.6 (20.5-60.0) % [place] % (Auto) 8.9 (1.7-12.0) % Eos % (Auto) 2.3 (0.9-7.0) % Baso % (Auto) 0.6 (0.2-2.0) % Neut # (Auto) 6.0 (1.4-6.5) 10^3/uL Lymph # (Auto) 2.3 (1.2-3.8) 10^3/uL [place] # (Auto) 0.8 (0.3-0.8) 10^3/uL Eos # (Auto) 0.2 (0.0-0.7) 10^3/uL Baso # (Auto) 0.1 (0.0-0.1) 10^3/uL Abs Immat Gran (auto) 0.03 (0.00-0.03) 10^3/uL Imm/Tot Granulo (auto) 0.3 (0.0-0.5) % Sodium 141 (136-145) mmol/L Potassium 3.9 (3.5-5.1) mmol/L Chloride 104 (98-107) mmol/L Carbon Dioxide 27.9 (21.0-32.0) mmol/L Anion Gap 13.0 BUN 20.0 H (7.0-18.0) mg/dL Creatinine 0.66 (0.55-1.02) mg/dL Est GFR ( Amer) >60 (>=60 mL/min/1.73m^2) Est GFR (Non-Af Amer) >60 (>=60 mL/min/1.73m^2) BUN/Creatinine Ratio 30.3 Glucose 106 (74-106) mg/dL Calcium 8.6 (8.5-10.1) mg/dL Total Bilirubin 0.3 (0.2-1.0) mg/dL AST 11 L (15-37) U/L ALT 21 (14-59) U/L Alkaline Phosphatase 129 H (46-116) U/L Troponin I High Sens 9.5 (4.0-51.3) pg/mL Total Protein 7.1 (6.4-8.2) g/dL Albumin 3.6 (3.4-5.0) g/dL Globulin 3.5 g/dL Albumin/Globulin Ratio 1.0 Discharge Plan Discharge Chief Complaint: Weakness Clinical Impression: Vertigo Patient Disposition: Home, Self-Care Time of Disposition Decision: 13:16 Condition: Good Print Language: Telugu Instructions: Vertigo (DC) Referrals: TIA GRANT [Primary Care Provider, Unknown] - 1 week Discharge Date/Time: 12/28/24 13:36
[2024-12-28 12:23] LABS: Hematocrit 43.8 % (36.0-48.0); Hemoglobin 14.6 g/dL (12.0-16.0); Immature Granulocytes Abs Auto 0.03 10^3/uL (0.00-0.03); Immature Granulocytes Pct Auto 0.3 % (0.0-0.5); Lymphocytes Absolute Auto 2.3 10^3/uL (1.2-3.8); Mean Corpuscular HGB Conc 33.3 g/dL (29.9-35.2); Mean Corpuscular Hemoglobin 30.5 pg (26.7-34.0); Mean Corpuscular Volume 91.6 fL (81.0-99.0); Platelet Count 382 10^3/uL (150-450); Red Blood Count 4.78 10^6/uL (4.20-5.40); White Blood Count 9.5 10^3/uL (4.0-11.0)
[2024-12-28 12:33] VITALS: BP 139/81; PULSE 61; O2SAT 97
[2024-12-28 12:37] LABS: Alanine Aminotransferase 21 U/L (14-59); Albumin Globulin Ratio 1.0; Albumin Level 3.6 g/dL (3.4-5.0); Alkaline Phosphatase 129 U/L (46-116); Anion Gap 13.0; Aspartate Amino Transferase 11 U/L (15-37); Blood Urea Nitrogen 20.0 mg/dL (7.0-18.0); Calcium 8.6 mg/dL (8.5-10.1); Carbon Dioxide 27.9 mmol/L (21.0-32.0); Chloride 104 mmol/L (98-107); Estimated GFR (African America >60 (>=60 mL/min/1.73m^2); Estimated GFR (Non-African Ame >60 (>=60 mL/min/1.73m^2); Globulin 3.5 g/dL; Glucose 106 mg/dL (74-106); Potassium 3.9 mmol/L (3.5-5.1); Sodium 141 mmol/L (136-145); Total Protein 7.1 g/dL (6.4-8.2)
[2024-12-28 13:32] VITALS: BP 158/86; PULSE 66; O2SAT 98
== END 2024-12-28 13:36 | disposition home or self-care (01) ==
PROVIDERS: Emergency Provider Emergency Medicine; PCP Nurse Practitioner Family
DX: R42 Dizziness and giddiness (principal)
CPT/HCPCS: 36415; 70450; 71045; 80053; 84484; 85025; 93005; 99285